=== PATIENT | female | born 2000 | race Two or more races ===

== ENCOUNTER 2022-09-01 16:24 | Emergency (ER) | payer SELFPAY ==
[~2022-09-01] VITALS: Ht 162.6 cm; Wt 81.6 kg
--- NOTE | 2022-09-01 16:27 | NUR ---
seen and examined by
[2022-09-01 17:12] LABS: *URINE HCG, QUAL NEGATIVE (NEGATIVE)
--- NOTE | 2022-09-01 17:40 | NUR ---
Patient discharged to home in stable condition. Written and verbal after care instructions given. Patient verbalizes understanding of instructions. Stressed follow up or return to ER for worsening s/s.
[2022-09-01 17:42] VITALS: BP 130/80
== END 2022-09-01 17:42 | disposition home or self-care (01) ==
LOC: ER 16:26
DX: R00.2 Palpitations (principal); R06.00 Dyspnea, unspecified
CPT/HCPCS: 71045; 84703; 93005; A4663